=== PATIENT | male | born 1965 | race Caucasian/White ===

== ENCOUNTER 2018-02-13 09:04 | Emergency (ER) | payer OTHER ==
[~2018-02-13] VITALS: Ht 167.6 cm; Wt 83.9 kg
[~2018-02-13 09:04] MED LIST: CEFADROXIL500 MG; ZANTAC300 MG
== END 2018-02-13 10:39 | disposition home or self-care (01) ==
LOC: ER 09:04
DX: S61.221A Laceration with foreign body of left index finger without damage to nail, initial encounter (principal); W45.8XXA Other foreign body or object entering through skin, initial encounter; Y93.89 Activity, other specified; Y92.89 Other specified places as the place of occurrence of the external cause; Y99.8 Other external cause status

== ENCOUNTER 2018-02-22 11:17 | Emergency (ER) | payer OTHER ==
[~2018-02-22] VITALS: Ht 167.6 cm; Wt 83.9 kg
[2018-02-22] MEDS ORDERED: IBUPROFEN800 MG PO (12:28)
[2018-02-22] MEDS ORDERED: LEVAQUIN500 MG PO (12:28)
== END 2018-02-22 12:34 | disposition home or self-care (01) ==
LOC: ER 11:17
DX: Z48.02 Encounter for removal of sutures (principal)

== ENCOUNTER 2018-03-28 15:01 | Emergency (ER) | payer OTHER ==
[~2018-03-28] VITALS: Ht 167.6 cm; Wt 86.2 kg
[~2018-03-28 15:01] MED LIST changes: +IBUPROFEN800 MG PO; +LEVAQUIN500 MG PO
[2018-03-28] MEDS ORDERED: PRILOSEC2.5 MG (15:41)
== END 2018-03-28 19:34 | disposition home or self-care (01) ==
LOC: ER 15:01
DX: R00.2 Palpitations (principal)

== ENCOUNTER 2020-09-01 14:10 | Emergency (ER) | payer OTHER ==
[~2020-09-01] VITALS: Ht 167.6 cm; Wt 83.9 kg
[~2020-09-01 14:10] MED LIST changes: +PRILOSEC2.5 MG
[2020-09-01] MEDS ORDERED: AVAPRO300 MG (14:33)
== END 2020-09-01 19:57 | disposition home or self-care (01) ==
LOC: ER 14:10
DX: I16.0 Hypertensive urgency (principal); I10 Essential (primary) hypertension; Z03.818 Encounter for observation for suspected exposure to other biological agents ruled out; R06.02 Shortness of breath

== ENCOUNTER 2021-03-16 21:29 | Emergency (ER) | payer OTHER ==
[~2021-03-16] VITALS: Ht 167.6 cm; Wt 83.9 kg
[~2021-03-16 21:29] MED LIST changes: +AVAPRO300 MG
[2021-03-16] MEDS ORDERED: ZYRTEC (21:46)
== END 2021-03-17 04:51 | disposition home or self-care (01) ==
LOC: ER 21:29 → CPU-OBS 21:46 → ER 21:46
DX: R07.89 Other chest pain (principal); Z11.52 Encounter for screening for COVID-19
CPT/HCPCS: G0378; G0379; 93005